=== PATIENT | female | born 1995 | race Caucasian/White ===

== ENCOUNTER 2019-03-04 18:02 | Emergency (ER) | payer SELFPAY ==
[~2019-03-04] VITALS: Ht 167.6 cm; Wt 86.0 kg
[2019-03-04 19:26] LABS: BASOPHILS % 0.4 % (0.0-2.0); EOSINOPHILS % 0.1 % (0.0-5.0); HEMATOCRIT. 32.9 % (36.0-48.0); LYMPHOCYTES % 11.6 % (20.0-50.0); MEAN CORPUSCULAR HEMOGLOBIN 21.7 pg (28.0-32.0); MEAN CORPUSCULAR VOLUME 70.8 fL (81.0-99.0); MEAN PLATELET VOLUME 8.7 fl (7.4-10.4); MONOCYTES % 7.3 % (2.0-8.0); NEUTROPHILS % 80.6 % (40.0-76.0); PLATELET 457 x1000/uL (130-400); RED BLOOD CELL COUNT 4.64 mill/uL (4.2-5.4); RED CELL DISTRIBUTION WIDTH 17.1 % (11.6-14.6)
[2019-03-04 19:27] LABS: CHLORIDE 106 mEq/L (98-107)
[2019-03-04 19:31] LABS: ETHANOL BLOOD < 10 mg/dL
[2019-03-04 19:36] LABS: CREATINE KINASE 86 IU/L (26-192)
[2019-03-04 19:38] LABS: CREATINE KINASE MB FRACTION < 1.0 ng/mL (0.5-3.6); HCG SCREEN NEGATIVE
[2019-03-04 19:51] LABS: CLARITY URINE CLOUDY (CLEAR); COLOR URINE YELLOW (YELLOW); KETONES URINE 1+ (NEGATIVE); LEUKOCYTE ESTERASE URINE 1+ (NEGATIVE); NITRITE URINE NEGATIVE (NEGATIVE); OCCULT BLOOD URINE NEGATIVE (NEGATIVE); PROTEIN URINE NEGATIVE (NEGATIVE); UROBILINOGEN URINE 0.2 E.U./dL (0.2-1.0)
[2019-03-04 20:03] LABS: *AMPHETAMINES SCREEN URINE NEGATIVE (NEGATIVE); *BARBITURATES SCREEN URINE NEGATIVE (NEGATIVE); *BENZODIAZEPINES SCREEN URINE NEGATIVE (NEGATIVE); *COCAINE SCREEN URINE NEGATIVE (NEGATIVE); METHADONE URINE SCREEN NEGATIVE (NEGATIVE); OPIATES URINE SCREEN NEGATIVE (NEGATIVE)
[2019-03-04 20:04] LABS: CANNABINOID URINE SCREEN NEGATIVE (NEGATIVE); PHENCYCLIDINE URINE SCREEN NEGATIVE (NEGATIVE)
[2019-03-04] MEDS ORDERED: LORAZEPAM 1MG TABLET PO ONE (20:15)
[2019-03-04] MEDS ORDERED: OLANZAPINE 5MG TABLET ODT PO ONE (20:15)
[2019-03-04] MEDS ORDERED: NITROFURANTOIN MACROCRYSTAL 25MG CAPSULE PO SCH (21:30)
[2019-03-05] MEDS ORDERED: NITROFURANTOIN MACROCRYSTAL 50MG CAPSULE PO NR (09:45)
[2019-03-05 10:33] VITALS: BP 124/60
== END 2019-03-05 10:35 | disposition home or self-care (01) ==
LOC: ER 18:02 → EDBD 18:02 → ER 03-05 10:35
DX: G93.40 Encephalopathy, unspecified (principal); N39.0 Urinary tract infection, site not specified; E86.0 Dehydration; F20.9 Schizophrenia, unspecified
CPT/HCPCS: 36415; 74176; 80053; 80305; 80320; 81003; 81025; 82550; 82553; 84703; 85025; 93005; 99284; G0480